=== PATIENT | female | born 2000 | race Caucasian/White ===

== ENCOUNTER 2018-10-18 12:31 | Emergency (ER) | payer OTHER ==
[~2018-10-18] VITALS: Ht 160 cm; Wt 54.0 kg
--- NOTE | 2018-10-18 12:39 | NUR ---
CAME IN FOR NAUSEA/VOMITTING/DIARRHEA X 30MINS [employer], RECENT TRAVEL TO [place], REPORTS FOOD POISONING DURING STAY. TO ER BED 2, HOOKED TO MONITOR, CHANGED TO GOWN, PROVIDED W WARM BLANKET, PT AOX4, AWAITING MD [place]
--- NOTE | 2018-10-18 12:45 | NUR ---
MONTRELL CORDERO AT BEDSIDE
[2018-10-18] MEDS ORDERED: IV NS 0.9% 1,000 ML BAG IV ONE (13:00)
[2018-10-18] MEDS ORDERED: ONDANSETRON 4 MG TAB.RAPDIS PO ONE (13:00)
[2018-10-18] MEDS ORDERED: ONDANSETRON HCL/PF 4 MG/2 ML VIAL ONE (13:01)
[2018-10-18 13:02] LABS: BASOPHILS % (AUTO) 0.2 % (0.0-2.0); EOSINOPHILS % (AUTO) 0.5 % (0.0-6.0); HEMATOCRIT 44 % (33-45); HEMOGLOBIN 14.9 g/dL (11.5-14.8); LYMPHOCYTES # (AUTO) 1.3 /CMM (0.8-4.8); LYMPHOCYTES % (AUTO) 15.1 % (20.0-44.0); MEAN CORPUSCULAR HGB CONC 34 g/dl (31.0-36.0); MEAN CORPUSCULAR VOLUME 88 fL (82-100); MONOCYTES # (AUTO) 0.6 /CMM (0.1-1.30); MONOCYTES % (AUTO) 7.3 % (2.0-12.0); NEUTROPHILS # (AUTO) 6.5 /CMM (1.8-8.9); NEUTROPHILS % (AUTO) 76.9 % (43.0-81.0); PLATELET COUNT (AUTO) 255 /CMM (150-450); RED BLOOD CELL COUNT(AUTO) 4.98 MIL/uL (4.0-5.2); WHITE BLOOD COUNT (AUTO) 8.4 K/uL (4.3-11.0)
[2018-10-18 13:11] LABS: CREATININE 0.8 mg/dL (0.6-1.3); POTASSIUM 3.9 mmol/L (3.5-5.1)
--- NOTE | 2018-10-18 13:48 | NUR ---
PT PROVIDED STOOL SAMPLE, SENT TO LAB.
[2018-10-18 13:59] VITALS: BP 125/68
--- NOTE | 2018-10-18 13:59 | NUR ---
IV removed. Catheter intact and site benign. Pressure and 4x4 applied to site. No bleeding noted.Patient discharged to home in stable condition. Written and verbal after care instructions given. Patient verbalizes understanding of instruction.
[2018-10-18 14:58] LABS: OCCULT BLOOD STOOL NEGATIVE (NEGATIVE)
== END 2018-10-18 14:01 | disposition home or self-care (01) ==
LOC: ER 12:35
DX: R42 Dizziness and giddiness (principal); R11.10 Vomiting, unspecified; R19.7 Diarrhea, unspecified; Z88.2 Allergy status to sulfonamides
CPT/HCPCS: 36415; 80048; 82272; 85025; 87015; 87045; 87177; 87209; 87427 ×3; 87493; 89055; 93005; 96360; 99284; J2405; J7030